=== PATIENT | female | born 1995 | race Caucasian/White ===

== ENCOUNTER 2021-11-05 08:29 | Emergency (ER) | payer OTHER ==
[2021-11-05] MEDS ORDERED: NORCO 5-325 TA1 EACH PO (09:21)
== END 2021-11-05 10:06 | disposition home or self-care (01) ==
LOC: FER 08:29
DX: L02.512 Cutaneous abscess of left hand (principal); Z23 Encounter for immunization; Z28.310 Unvaccinated for COVID-19
CPT/HCPCS: 90471; 90715; J2001